=== PATIENT | male | born 1975 | race Two or more races ===

== ENCOUNTER 2023-01-02 21:56 | Emergency (ER) | payer BC, SELFPAY ==
[2023-01-02] VITALS (8 sets, daily range): BP systolic 164–180; BP diastolic 101–111; PULSE 81–95; RESP 19–27; TEMP 39.1; O2SAT 95–100
--- NOTE | ~2023-01-02 | XR_ITS ---
XR chest 1V portable 01/02/2023 22:21 Indication: Fever. Dyspnea. Procedure: AP portable chest Comparison: No prior studies for comparison. Findings: Heart size normal. No focal air space disease, pulmonary edema, pleural effusion or suspect ed pneumothorax. No acute osseous abnormality. Impression: 1: No acute cardiopulmonary disease. Reviewed, dictated and finalized at location A. SCRIPTER Impression: 1: No acute cardiopulmonary disease.
--- NOTE | 2023-01-02 22:14 | ECG_ITS ---
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
[2023-01-02 23:07] LABS: Prothrombin Time 12.6 Seconds (11.1-14.7)
--- NOTE | 2023-01-02 23:15 | ED.CHESTPAIN ---
HPI - Chest Pain General Chief Complaint: Chest Pain <Edgar Jacinto PA-C - Last Filed: 01/03/23 02:25> Stated Complaint: palpitations <Edgar Jacinto PA-C - Last Filed: 01/03/23 02:25> Time Seen by Provider: 01/02/23 22:49 <Edgar Jacinto PA-C - Last Filed: 01/03/23 02:25> History of Present Illness HPI narrative: This is a 47-year-old male who presents to the ED via EMS for chief complaint of palpitations palpitations. Patient also notes shivers and shaking. States he was at a [facility] when this started so he called EMS. He also notes feeling hot. Upon my initial exam he states that he is no longer having his palpitations. He denies any chest pain whatsoever. He also denies any shortness of breath or any cough. Endorses sore throat. He states he has had high blood pressure in the past but does not take any regular medications. Denies headache, loss of consciousness, dizziness, vision changes, numbness, weakness. Secondarily he notes that he has been traveling a lot in the past couple of weeks with multiple flights. No change in diet but notes eating medium cooked salmon this evening. He has also had beef and chicken recently. <Edgar Jacinto PA-C - Last Filed: 01/03/23 02:25> Related Data Allergies/Adverse Reactions: Allergies Allergy/AdvReac Type Severity Reaction Status Date / Time No Known Allergies Allergy Verified 01/02/23 23:48 <Edgar Jacinto PA-C - Last Filed: 01/03/23 02:25> Review of Systems Review of Systems: CONSTITUTIONAL: Endorses fever, chills, fatigue, sweats. EYES: Denies visual changes, redness, or discharge. ENT: Endorses sore throat. Denies rhinorrhea, congestion, or otalgia. CARDIOVASCULAR: Denies chest pain, palpitations, or edema. RESPIRATORY: Denies cough or dyspnea. GASTROINTESTINAL: Denies abdominal pain, nausea, vomiting, or diarrhea. GENITOURINARY: Denies dysuria or hematuria. SKIN: Denies rash or itching. MUSCULOSKELETAL: Denies back pain, joint pain, or myalgia. NEUROLOGIC: Denies headache, numbness, dizziness, or weakness. PSYCHIATRIC: Denies anxiety or depression. <Edgar Jacinto PA-C - Last Filed: 01/03/23 02:25> Exam Narrative: GENERAL: Well-appearing, well-nourished, and in no acute distress. Diaphoresis to the scalp. HEAD: Normocephalic, atraumatic. Warm to touch. EYES: PERRLA and EOMI. ENT: Nares clear, no rhinorrhea or epistaxis. Mucous membranes moist. Oropharynx without tonsillar hypertrophy exudate or other lesions. Oropharyngeal erythema without exudate. NECK: Supple. No adenopathy or masses. CHEST: No respiratory distress. Clear to auscultation. No wheezes rales or rhonchi HEART: Regular rate and rhythm. No murmur heard. Normal peripheral pulses. ABDOMEN: Soft, nontender, nondistended, normal active bowel sounds. EXTREMITIES: Normal range of motion. No edema. SKIN: Warm, dry, no rash. NEURO: Alert and oriented x3. No focal deficits. PSYCH: Normal mood and affect. <Edgar Jacinto PA-C - Last Filed: 01/03/23 02:25> Course [employer]EARCH ENGINE[employer]/PA Physician Supervision For this encounter, I have reviewed the mid-level provider documentation, treatment plan and medical decision making. I have had [id number] time with the patient. 47-year-old male presents ED with fever, presyncopal event and feeling well. Sepsis workup was ordered. Significant for copious infection. Rest was workup was negative. Patient is not requiring supplemental oxygen, has stable vital signs and is well appearing. Patient is a good candidate for outpatient therapy. Patient be discharged with return precautions. All questions answered. Patient in agreement w/ disposition. <Nicko Partida MD - Last Filed: 01/03/23 20:16> Vital Signs Vital signs: Vital Signs Pulse Rate 93 01/02/23 22:09 Respiratory Rate 25 H 01/02/23 22:09 Pulse Oximetry 96 01/02/23 22:09 Temperature 99.3 F 01/03/23 00:22 Pulse Rate 72 01/03/23 02:22 Respiratory Rat
[2023-01-02 23:18] LABS: Troponin I < 0.012 ng/mL (0.000-0.034)
[2023-01-02 23:23] LABS: Basophils Absolute Auto 0.1 K/mm3 (0.0-0.1); Basophils Percent Auto 0.9 % (0.2-1.2); Eosinophils Absolute Auto 0.2 K/mm3 (0-0.3); Eosinophils Percent Auto 2.2 % (0-4.4); Hematocrit 46.1 % (42.0-52.0); Hemoglobin 15.4 g/dL (14.0-18.0); Immature Granulocyte Absolute 0.03 K/mm3 (0.00-0.031); Immature Granulocyte Percent A 0.3 % (0-0.5); Lymphocytes Absolute Auto 1.41 K/mm3 (0.9-3.2); Lymphocytes Percent Auto 15.1 % (18.3-44.2); Mean Corpuscular HGB Conc 33.4 g/dl (32-36); Mean Corpuscular Hemoglobin 29.8 pg (26-34); Mean Corpuscular Volume 89.2 fl (80-100); Mean Platelet Volume 10.7 fl (7.4-10.4); Monocytes Absolute Auto 0.7 K/mm3 (0.1-0.6); Monocytes Percent Auto 7.1 % (2.6-8.5); Neutrophils Percent Auto 74.4 % (45.5-73.1); Platelet Count Result 141 k/mm3 (150-375); Red Blood Count 5.17 M/mm3 (4.6-6.20); Red Cell Distribution Width 12.5 % (11.5-14.5); White Blood Count 9.3 K/mm3 (4.5-10.0)
[2023-01-02 23:33] LABS: Alanine Aminotransferase 31 U/L (6-50); Albumin Level 4.6 g/dL (3.5-5.1); Alkaline Phosphatase 86 U/L (38-126); Anion Gap 6 mmol/L (8-16); Aspartate Amino Transferase 35 U/L (17-59); Bilirubin,Total 0.7 mg/dL (0.2-1.3); Blood Urea Nitrogen 18 mg/dL (9-20); Calcium 8.5 mg/dL (8.4-10.2); Carbon Dioxide 31 mmol/L (22-30); Chloride 99 mmol/L (98-107); Estimated CRCL calculation 93 ml/min; Estimated Glomerular Filt Rate > 60; Glucose 95 mg/dL (65-110); Lipase 40 U/L (23-300); Potassium 3.6 mmol/L (3.4-5.0); Sodium 136 mmol/L (137-145)
[2023-01-02] MEDS: SODIUM CHLORIDE 0.9% IV 1,000 ML 999 ML IV CONT (23:48)
[2023-01-02] MEDS: IBUPROFEN 400 MG TABLET 800 MG PO (23:49)
[2023-01-03 00:19] VITALS: TEMP 37.4
[2023-01-03 00:22] VITALS: TEMP 37.4
[2023-01-03 00:30] LABS: Lactic Acid Reflex 1.7 mmol/L (0.7-2.0)
[2023-01-03 00:33] LABS: CRP < 0.5 mg/dL (<1.0)
[2023-01-03 00:39] VITALS: BP 163/95; PULSE 80; RESP 21; O2SAT 98
[2023-01-03 00:42] LABS: Strep Group A RT-PCR NOT DETECTED (Negative)
[2023-01-03 00:53] LABS: Influenza A QL RT-PCR Negative (Negative); Influenza B QL RT-PCR Negative (Negative); SARS-CoV-2 RNA PCR Positive
[2023-01-03 01:29] VITALS: BP 158/93; PULSE 80; RESP 20; O2SAT 98
[2023-01-03 02:22] VITALS: BP 155/95; PULSE 72; RESP 18; O2SAT 99
== END 2023-01-03 02:25 | disposition home or self-care (01) ==
PROVIDERS: Emergency Medicine; Emergency Provider Physician Assistant
DX: U07.1 COVID-19 (principal); I45.10 Unspecified right bundle-branch block; R94.31 Abnormal electrocardiogram [ECG] [EKG]
CPT/HCPCS: 36415; 71045; 80053; 83605; 83690; 84484; 85025; 85610; 85730; 86140; 87040; 87636; 87651; 93005; 96365; 99284; A9270; J0131; J7030